=== PATIENT | female | born 2000 | race Caucasian/White ===

== ENCOUNTER 2022-01-26 08:49 | Outpatient (REF) | payer OTHER, SELFPAY ==
--- NOTE | ~2022-01-26 | MR_ITS ---
EXAMINATION: MR BRAIN WITHOUT AND WITH CONTRAST CLINICAL INFORMATION: History of neurofibromatosis type I. COMPARISON: Outside MRI dated 04/10/2018. TECHNIQUE: Multiplanar, multisequence imaging of the brain was performed before and after the intravenous administration of 5.5 mL of Gadavist. FINDINGS: There are scattered foci of T2 hyperintensity in the globus pallidus bilaterally, the thalami, the hippocampi, and in the dorsal brainstem which were present on prior imaging and are suspected to represent chronic areas of myelin vacuolization. Small foci of susceptibility artifact, mainly at the odell-white matter junction in both cerebral hemispheres and in the body of the right caudate nucleus are stable and may be due to either areas of mineralization or small chronic microhemorrhages from possible underlying cavernomas. The optic nerve sheath complexes and optic chiasm appear normal, though not targeted for evaluation. No diffusion abnormalities are identified to suggest an acute infarct. The ventricles are normal in size. No mass effect or midline shift is seen. No extra-axial fluid collections are seen. The brainstem and cerebellum are normal. There is no abnormal parenchymal or leptomeningeal enhancement. The craniovertebral junction, marrow signal, and midline structures are normal. The major intracranial flow voids at the level of the [place] of [place] are preserved. The dural venous sinus flow voids are maintained. The mastoid air cells and paranasal sinuses are well aerated. MR/MR head/brain wo con IMPRESSION: No acute process. No abnormal enhancement. 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 Additional stable scattered punctate foci of susceptibility artifact in the brain parenchyma on gradient imaging which are nonspecific but may reflect areas of mineralization or chronic microhemorrhages from potential small cavernous malformations.
== END 2022-01-26 08:50 | disposition home or self-care (01) ==
LOC: HO.MRI 08:49
PROVIDERS: Visit Provider Psychiatry & Neurology Neurology
DX: Q85.01 Neurofibromatosis, type 1 (principal)
CPT/HCPCS: 70551; A9585

== ENCOUNTER 2022-04-13 17:54 | Emergency (ER) | payer OTHER, SELFPAY ==
--- NOTE | ~2022-04-13 | US_ITS ---
EXAMINATION: US ABDOMEN LIMITED CLINICAL INFORMATION: Right upper quadrant pain. Question cholelithiasis.. COMPARISON: None TECHNIQUE: Real-time imaging of the right upper quadrant abdominal viscera. FINDINGS: PANCREAS: The pancreatic head and body are unremarkable. The tail is obscured by gas. LIVER: Normal. The liver is normal in size. The liver contour is normal. Parenchymal echogenicity is normal. No focal hepatic lesion. There is no intrahepatic biliary duct dilatation seen. GALLBLADDER: The gallbladder is mostly contracted without evidence of stones, sludge, polyps, wall thickening or pericholecystic fluid. COMMON BILE DUCT: Normal in caliber measuring 0.3 cm in diameter. RIGHT KIDNEY: There is an upper pole cyst measuring 1.6 cm with a peripheral calcification. No hydronephrosis. No renal calculi or solid parenchymal lesions. The kidney measures 9.4 cm in maximum dimension. FREE FLUID: None. US/US abdomen limited IMPRESSION: Contracted gallbladder with no stones seen. No inflammation. 1.6 cm right renal cyst. There is a peripheral calcification of the cyst.
[2022-04-13 17:58] VITALS: BP 138/63; PULSE 93; RESP 18; TEMP 36.7; O2SAT 98; BMI 24.4
[2022-04-13] MEDS: Ondansetron ODT 4 MG TAB.RAPDIS TRANSLINGU (18:02)
[2022-04-13 18:09] LABS: MANUAL DIFF FLAG NO
[2022-04-13 18:28] LABS: Basophils Absolute Auto 0.1 X10*3/uL (0.0-0.2); Basophils Percent Auto 0.6 % (0-2); Eosinophils Absolute Auto 0.1 X10*3/uL (0.0-0.4); Eosinophils Percent Auto 1.4 % (0-4); Hematocrit 41.5 % (37.0-47.0); Hemoglobin 14.8 g/dl (12.0-16.0); Imm Gran Abs Auto 0.03 X10*3/uL (0.00-0.03); Imm Gran Pct Auto 0.3 % (0.0-0.4); Lymphocytes Absolute Auto 1.5 X10*3/uL (1.2-4.9); Lymphocytes Percent Auto 16.3 % (20-40); Mean Corpuscular HGB Conc 35.7 g/dl (31.0-35.0); Mean Corpuscular Volume 81.2 fL (80.0-98.0); Mean Platelet Volume 10.7 fL (9.4-12.3); Monocytes Absolute Auto 0.7 X10*3/uL (0.1-1.2); Neutrophils Absolute Auto 6.9 x10*3/uL (2.0-8.3); Neutrophils Percent Auto 74.4 % (45-73); Platelet Count 264 X10*3/uL (160-400); Red Blood Count 5.11 X10*6/uL (4.20-5.50); Red Cell Distribution Width 12.6 % (11.0-16.0); White Blood Count 9.3 X10*3/uL (4.8-10.8)
[2022-04-13 18:32] LABS: Alanine Aminotransferase 9 U/L (0-31); Albumin Level 4.6 g/dL (3.5-5.0); Alkaline Phosphatase 59 U/L (39-117); Anion Gap 15 (12-20); Aspartate Amino Transferase 11 U/L (5-31); Bilirubin Total 0.5 mg/dL (0.0-1.0); Blood Urea Nitrogen 14 mg/dL (9-16); Calcium 9.5 mg/dL (8.4-10.2); Carbon Dioxide 25 mmol/L (22-29); Chloride 104 mmol/L (96-108); Creatinine Clr Calc Pharmacy 77.7; Estimated Glomerular Filt Rate > 60; Glucose Random 104 mg/dL (60-115); Potassium 4.1 mmol/L (3.3-5.1); Sodium 140 mmol/L (135-145); Total Protein 7.2 g/dL (6.5-8.0)
--- NOTE | 2022-04-13 21:08 | ED.ABDPAIN ---
HPI - Abdominal Pain General Chief Complaint: Abdominal Pain Stated Complaint: abd pain Time Seen by Provider: 04/13/22 21:08 Source: patient Mode of arrival: ambulatory Limitations: no limitations History of Present Illness HPI narrative: Patient with History of anxiety complaining of right upper quadrant pain for last 1 month was seen at [facility] [address] scan was negative complaining of continued alford of the pain associated with nausea vomited today once no fever no chills no diarrhea Related Data Previous Rx's Medication Instructions Recorded dicyclomine 20 mg tablet 20 mg PO QID PRN abdominal pain 04/14/22 #20 tabs Allergies Allergy/AdvReac Type Severity Reaction Status Date / Time No Known Allergies Allergy Verified 04/13/22 17:58 Review of Systems Review of Systems Yes all other systems are reviewed and are negative [facility] Social History Social History Advance Directives: No Advance Directives Information Provided: No Physical Exam ED Vital Signs: Vital Signs - 24 hr 04/13/22 17:58 04/13/22 21:59 04/13/22 23:52 Temperature 98.0 F 98.6 F Pulse Rate 93 76 78 Respiratory Rate 18 18 24 H Blood Pressure 138/63 106/55 L 117/63 Pulse Oximetry 98 99 99 Oxygen Delivery Method Room Air Room Air Room Air BMI result Body Mass Index 24.4 Appearance: Alert. Oriented X3. No acute distress. Eyes: No pallor or icterus ENT: Pharynx normal. Oral Mucosa moist Neck: Normal inspection. Neck supple. CVS: Normal heart rate and rhythm. Pulses normal. Respiratory: No respiratory distress. Equal air entry bilateral, no wheezing/rales/rhonchi Abdomen: Soft , deep tenderness right upper quadrant and epigastric area. Bowel sounds are present, no mass palpable, no CVA tenderness Skin: Skin warm and dry. Normal skin color. Normal skin turgor. Extremities: No lower extremity edema. No calf tenderness Neuro: Oriented X 3. No motor deficit. MDM - Abdominal Pain MDM Narrative Medical decision making narrative: Patient with upper abdominal pain previous CT scan negative was seen at [facility] last month lab workup was negative today also ultrasound normal CBC chemistry is also negative patient's symptoms likely from GERD/irritable bowel syndrome discharge patient home on Bentyl advised to continue Protonix and follow with PCP Lab Data Attestation: I reviewed the patient's lab results. Result diagrams: 04/13/22 18:05 04/13/22 18:05 Labs: Lab Results 04/13/22 04/13/22 04/13/22 Range/Units 18:05 18:05 23:33 WBC 9.3 (4.8-10.8) X10*3/uL RBC 5.11 (4.20-5.50) X10*6/uL Hgb 14.8 (12.0-16.0) g/dl Hct 41.5 (37.0-47.0) % MCV 81.2 (80.0-98.0) fL MCH 29.0 (27.0-33.0) pg MCHC 35.7 H (31.0-35.0) g/dl RDW 12.6 (11.0-16.0) % Plt Count 264 (160-400) X10*3/uL MPV 10.7 (9.4-12.3) fL Immature Gran % (Auto) 0.3 (0.0-0.4) % Neut % (Auto) 74.4 H (45-73) % Lymph % (Auto) 16.3 L (20-40) % Frontier % (Auto) 7.0 (2-11) % Eos % (Auto) 1.4 (0-4) % Baso % (Auto) 0.6 (0-2) % Lymph # (Auto) 1.5 (1.2-4.9) X10*3/uL Frontier # (Auto) 0.7 (0.1-1.2) X10*3/uL Eos # (Auto) 0.1 (0.0-0.4) X10*3/uL Baso # (Auto) 0.1 (0.0-0.2) X10*3/uL Abs Immat Gran (auto) 0.03 (0.00-0.03) X10*3/uL Absolute Neuts (auto) 6.9 (2.0-8.3) x10*3/uL Absolute Nucleated RBC 0.000 (0.0-0.012) X10*3/uL Nucleated RBC % (auto) 0.0 (0.0-0.2) /100WBC Sodium 140 (135-145) mmol/L Potassium 4.1 (3.3-5.1) mmol/L Chloride 104 (96-108) mmol/L Carbon Dioxide 25 (22-29) mmol/L Anion Gap 15 (12-20) BUN 14 (9-16) mg/dL Creatinine 0.82 (0.5-1.4) mg/dL Estim Creat Clear Calc 77.7 Estimated GFR > 60 Random Glucose 104 (60-115) mg/dL Calcium 9.5 (8.4-10.2) mg/dL Total Bilirubin 0.5 (0.0-1.0) mg/dL AST 11 (5-31) U/L ALT 9 (0-31) U/L Alkaline Phosphatase 59 (39-117) U/L Total Protein 7.2 (6.5-8.0) g/dL Albumin 4.6 (3.5-5.0) g/dL Urine Color Yellow Urine Appearance Clear Urine pH 7.0 (5.0-8.0) Ur Specific Kaleva 1.010 (1.005-1.025) Urine Protein Negative (Neg-Trace) mg/dL Urine Glucose (UA) Negative (Negative) mg/dL Urine Ketones Negative (Negative) mg/dL Urine Blood Negative (Negative) Urine Nitrite Negative (Negative) Ur Leukocyte Esterase Negative (Negative) Urine Test (NEGATIVE) 04/13/22 Range/Units 23:33 WBC (4.8-10.8) X10*3/uL RBC (4.20-5.50) X10*6/uL Hgb (12.0-16.0) g/dl Hct (37.0-47.0) % MCV (80.0-98.0) fL MCH (27.0-33.0) pg MCHC (31.0-35.0) g/dl RDW (11.0-16.0) % Plt Count (160-400) X10*3/uL MPV (9.4-12.3) fL Immature Gran % (Auto) (0.0-0.4) % Neut % (Auto) (45-73) % Lymph % (Auto) (20-40) % Frontier % (Auto) (2-11) % Eos % (Auto) (0-4) % Baso % (Auto) (0-2) % Lymph # (Auto) (1.2-4.9) X10*3/uL Frontier # (Auto) (0.1-1.2) X10*3/uL Eos # (Auto) (0.0-0.4) X10*3/uL Baso # (Auto) (0.0-0.2) X10*3/uL Abs Immat Gran (auto) (0.00-0.03) X10*3/uL Absolute Neuts (auto) (2.0-8.3) x10*3/uL Absolute Nucleated RBC (0.0-0.012) X10*3/uL Nucleated RBC % (auto) (0.0-0.2) /100WBC Sodium (135-145) mmol/L Potassium (3.3-5.1) mmol/L Chloride (96-108) mmol/L Carbon Dioxide (22-29) mmol/L Anion Gap (12-20) BUN (9-16) mg/dL Creatinine (0.5-1.4) mg/dL Estim Creat Clear Calc Estimated GFR Random Glucose (60-115) mg/dL Calcium (8.4-10.2) mg/dL Total Bilirubin (0.0-1.0) mg/dL AST (5-31) U/L ALT (0-31) U/L Alkaline Phosphatase (39-117) U/L Total Protein (6.5-8.0) g/dL Albumin (3.5-5.0) g/dL Urine Color Urine Appearance Urine pH (5.0-8.0) Ur Specific K[place] (1.005-1.025) Urine Protein (Neg-Trace) mg/dL Urine Glucose (UA) (Negative) mg/dL Urine Ketones (Negative) mg/dL Urine Blood (Negative) Urine Nitrite (Negative) Ur Leukocyte Esterase (Negative) Urine Test NEGATIVE (NEGATIVE) Discharge Plan Discharge Clinical Impression: Irritable bowel syndrome, GERD (gastroesophageal reflux disease) Patient Disposition: Home, Self-Care Instructions: Irritable Bowel Syndrome (ED), Gastroesophageal Reflux Disease (ED) Additional Instructions: Continue Protonix as prescribed by your physician Avoid fried food Take Bentyl 1 tablet every 6-8 hours for abdominal discomfort Drink plenty of fluids Follow up with PCP Prescriptions: New dicyclomine 20 mg tablet 20 mg PO QID PRN (Reason: abdominal pain) Qty: 20 0RF
[2022-04-13 21:59] VITALS: BP 106/55; PULSE 76; RESP 18; TEMP 37; O2SAT 99
[2022-04-13] MEDS: Ketorolac Tromethamine 30 MG/ML VIAL IVPUSH (22:01)
[2022-04-13] MEDS: 0.9 % Sodium Chloride 1,000 ML 999 ML IV (22:01)
[2022-04-13 23:52] VITALS: BP 117/63; PULSE 78; RESP 24; O2SAT 99
[2022-04-13 23:54] LABS: Appearance Urine Clear; Color Urine Yellow; Glucose Urine UA Negative (Negative); Leukocyte Esterase Urine Negative (Negative); Nitrite Urine Negative (Negative); Urine Blood Negative (Negative); Urine Ketones Negative (Negative); Urine Protein Negative (Neg-Trace)
[2022-04-13 23:55] LABS: UPreg QC Valid YES; Urine Pregnancy NEGATIVE (NEGATIVE)
[2022-04-14] MEDS: Dicyclomine HCl 10 MG CAPSULE 20 MG PO (00:10)
[2022-04-14 00:17] LABS: Lipase 31 U/L (8-78)
== END 2022-04-14 00:15 | disposition home or self-care (01) ==
PROVIDERS: Emergency Provider Internal Medicine
DX: K58.9 Irritable bowel syndrome, unspecified (principal); K21.9 Gastro-esophageal reflux disease without esophagitis; R10.11 Right upper quadrant pain; R11.2 Nausea with vomiting, unspecified
CPT/HCPCS: 36415; 76705; 80053; 81003; 81025; 83690; 85025; 96374; 99284; J1885

== ENCOUNTER 2022-06-17 01:45 | Emergency (ER) | payer OTHER, SELFPAY ==
--- NOTE | 2022-06-17 | ECG_ITS ---
Test Reason : CHEST PAIN Blood Pressure : / mmHG Vent. Rate : 075 BPM Atrial Rate : 075 BPM P-R Int : 128 ms QRS Dur : 122 ms QT Int : 410 ms P-R-T Axes : -08 -20 048 degrees QTc Int : 457 ms Normal sinus rhythm Minimal voltage criteria for LVH, may be normal variant ( R in aVL ) Intra-ventricular conduction delay Left axis deviation Abnormal ECG No previous ECGs available Referred By: Generic ED Physician Electronically Signed By:BEATRIZ TERRY MD
--- NOTE | ~2022-06-17 | XR_ITS ---
EXAMINATION: XR CHEST CLINICAL INFORMATION: Chest pain. COMPARISON: None TECHNIQUE: Frontal view of the chest was obtained. FINDINGS: The lungs are clear. The heart and mediastinal structures are unremarkable. Multilevel sternotomy wires are intact. XR/XR chest 1V IMPRESSION: No acute cardiopulmonary process.
--- NOTE | ~2022-06-17 | CT_ITS ---
EXAMINATION: CT ANGIOGRAM CHEST CLINICAL INFORMATION: Chest pain radiating to the back COMPARISON: None TECHNIQUE: Multiple axial images were obtained through the chest after the administration of 70 mL of Omnipaque 350 intravenous contrast. Sagittal, coronal, and oblique MIP images through the chest were obtained under concurrent supervision by a radiologist. This CT examination was performed using dose optimization techniques as appropriate, variously including the following: *Automated exposure control *Adjustment of mA and/or kV according to patient size (this includes techniques or standardized protocols for targeted exams where dose is matched to indication/reason for exam; i.e. extremities or head) *Use of iterative reconstruction technique DLP: 185 mGy-cm FINDINGS: The study is limited by significant patient motion artifact. There is artifact and misregistration of the tapia of the aortic arch and main pulmonary artery which limits evaluation for aortic dissection. No definite aneurysm or dissection seen. No pulmonary embolus seen. Mild upper lobe predominant emphysema. No focal consolidation or mass. No pleural effusion or pneumothorax. Normal heart size. No pericardial effusion. No lymphadenopathy. Sternal wires and healed sternotomy. No rib fractures. 4 mm right upper pole density could represent a calculus. No hydronephrosis. No adrenal mass. No reflux of contrast into the hepatic veins. CT/CT angio chest aorta IMPRESSION: Limited study due to extensive motion artifact. This limits evaluation for subtle aortic dissection particularly at the level of the aortic arch. If there is continued high clinical concern for dissection, the study should be repeated with cardiac gating.
[2022-06-17 01:49] VITALS: BP 128/64; PULSE 78; RESP 16; TEMP 36.5; O2SAT 100; BMI 53.8
[2022-06-17 02:58] LABS: MANUAL DIFF FLAG NO
[2022-06-17 02:59] LABS: Basophils Absolute Auto 0.1 X10*3/uL (0.0-0.2); Basophils Percent Auto 0.6 % (0-2); Eosinophils Absolute Auto 0.2 X10*3/uL (0.0-0.4); Eosinophils Percent Auto 2.1 % (0-4); Hemoglobin 14.4 g/dl (12.0-16.0); Imm Gran Abs Auto 0.03 X10*3/uL (0.00-0.03); Imm Gran Pct Auto 0.3 % (0.0-0.4); Lymphocytes Percent Auto 19.9 % (20-40); Mean Corpuscular Hemoglobin 29.3 pg (27.0-33.0); Mean Corpuscular Volume 81.3 fL (80.0-98.0); Mean Platelet Volume 10.3 fL (9.4-12.3); Monocytes Absolute Auto 0.7 X10*3/uL (0.1-1.2); Monocytes Percent Auto 6.8 % (2-11); Neutrophils Absolute Auto 7.1 x10*3/uL (2.0-8.3); Neutrophils Percent Auto 70.3 % (45-73); Platelet Count 257 X10*3/uL (160-400); Red Blood Count 4.92 X10*6/uL (4.20-5.50); White Blood Count 10.1 X10*3/uL (4.8-10.8)
[2022-06-17 03:19] LABS: Alanine Aminotransferase 9 U/L (0-31); Albumin Level 4.6 g/dL (3.5-5.0); Alkaline Phosphatase 55 U/L (39-117); Anion Gap 15 (12-20); Aspartate Amino Transferase 12 U/L (5-31); Bilirubin Total 0.4 mg/dL (0.0-1.0); Blood Urea Nitrogen 18 mg/dL (9-16); Calcium 9.8 mg/dL (8.4-10.2); Carbon Dioxide 25 mmol/L (22-29); Chloride 104 mmol/L (96-108); Creatinine Clr Calc Pharmacy 130.7; Estimated Glomerular Filt Rate > 60; Glucose Random 85 mg/dL (60-115); Sodium 140 mmol/L (135-145); Total Protein 7.1 g/dL (6.5-8.0)
[2022-06-17 03:29] LABS: Troponin-I High Sensitivity < 3.5 ng/L (<3.5-17.0)
--- OUTSIDE RECORDS SUMMARY | 2022-06-17 07:57 | XMS_ITS | Continuity of Care Document ---
:2000 Author Organization [facility] Address [address] [place] [phone]- Care Team Providers Name Role Phone Olvin Malathi BILLS Primary Care Physician [place] [facility] [place] 09/08/21 - 10/08/21 [facility] [address] [place] [phone]- Allergies, Adverse Reactions, Alerts No Known Allergies Medications amoxicillin 500 mg oral tablet See Instructions, Take 4 tablets (2000mg) One hour prior to dental appointment, # 4 tablet, 2 Refills, Maintenance, 09/24/18 11:55:03 EST Start Date: 09/24/18 Status: Orderedchlorhexidine topical 0.12% liquid 15 mL = 0.018 Gm, Swish and Spit, 3 times a day after meals and bedtime, # 420 mL, 1 Refills, Maintenance, 11/05/20 15:07:00 EST, Oral Rinse, [id number], Partial fill upon patient request if the prescription is for a schedule II opioid drug.,... Start Date: 11/05/20 Stop Date: 11/19/20 Status: OrderedFlonase 1 sprays, Daily, 0 Refills, Maintenance, 01/18/18 9:01:34 EDT Start Date: 01/18/18 Status: OrderedLoratadine By Mouth, Daily, Refills 0, Maintenance, 11/30/17 9:23:26 EDT Start Date: 11/30/17 Status: Ordered Problem List Condition Effective Dates Status Health Status Informant Hyperactive Active behavior(Confirmed)(Stable) Neurofibromatosis type Active 1(Confirmed)(Stable) Short stature(Confirmed)(Stable) Active Social History Social History Type Response Smoking Status Never (less than 100 in life time) entered on: 10/01/19 Sex Female
--- OUTSIDE RECORDS SUMMARY | 2022-06-17 07:57 | XMS_ITS | Continuity of Care Document ---
:2000 Author Organization [facility] Address [address] [place] [address]- Care Team Providers Name Role Phone Milly JETT, Paula Lo Primary Care Physician Encounter [facility] [place] Date(s): 05/12/20 - 06/11/20 [facility] [address] [place] [id number]- [facility] Attending Physician: Admtr, Joe Allergies, Adverse Reactions, Alerts Substance Reaction Severity Status NKA Active Medications amoxicillin 500 mg oral tablet See Instructions, Take 4 tablets (2000mg) One hour prior to dental appointment, # 4 tablet, 2 Refills, Maintenance, 09/24/18 11:55:03 EST Start Date: 09/24/18 Status: OrderedFlonase 1 sprays, Daily, 0 Refills, [...]
--- OUTSIDE RECORDS SUMMARY | 2022-06-17 07:57 | XMS_ITS | Continuity of Care Document ---
:2000 Author Organization [facility] Address [address] [place] [phone]- Care Team Providers Name Role Phone Milly JETT, Paula Lo Primary Care Physician Encounter [facility] [place] Date(s): 10/16/19 - 10/16/[address] [phone]- [facility] Attending Physician: Ubaldo Donahue DO Allergies, Adverse Reactions, Alerts Substance Reaction Severity [...]
--- OUTSIDE RECORDS SUMMARY | 2022-06-17 07:57 | XMS_ITS | Continuity of Care Document ---
:2000 Author Organization [facility] Address [address] [place] [phone]- Care Team Providers Name Role Phone Olvin Malathi BILLS Primary Care Physician [place] [facility] [place]13[place] 10[place]13[place]21 [facility] [address] [place] [phone]- Allergies, Adverse Reactions, Alerts No Known Allergies [...] Refills, Maintenance, 11/05/20 15:07:00 EST, Oral Rinse, [id number], Partial fill upon patient request if [...]
--- OUTSIDE RECORDS SUMMARY | 2022-06-17 07:57 | XMS_ITS | Continuity of Care Document ---
:2000 Author Organization [facility] [address] [place] [phone]- Care Team Providers Name Role Phone Not on Staff, PCP Primary Care Physician Unavailable Encounter [facility] Date(s): 12/20/21 - 01/19/[address] [place] [phone]- Attending Physician: Joe Veliz Admitting Physician: Joe Veliz Referring Physician: AdmtrJoe Allergies, Adverse Reactions, Alerts No Known Allergies [...] Refills, Maintenance, 11/05/20 15:07:00 EST, Oral Rinse, [id number], Partial fill upon patient request if [...]
--- OUTSIDE RECORDS SUMMARY | 2022-06-17 07:57 | XMS_ITS | Continuity of Care Document ---
:2000 Author Organization [facility] Address [address] [place] [phone]- Care Team Providers Name Role Phone Malathi Figueroa Primary Care Physician Encounter [facility] [place] Date(s): 09/09/21 - 09/09/[address] [address]- Encounter Diagnosis Precordial chest pain (Final) - 09/09/21 Discharge Disposition: A-D/C Home Attending Physician: Danica Manrique DO Admitting Physician: Danica Manrique DO Referring Physician: Not on Staff, Referring MD Allergies, Adverse Reactions, Alerts No Known Allergies [...] Refills, Maintenance, 11/05/20 15:07:00 EST, Oral Rinse, [facility][id number], Partial fill upon patient request if [...] Neurofibromatosis type Active 1(Confirmed)(Stable) Short stature(Confirmed)(Stable) Active Results Radiology Reports Exam Date Time Procedure Performing Provider Status 09/09/21 2:42 PM Chest 2 Views Frontal and Lat Mini Valdes; Au th (Verified) Notes:(Chest 2 Views Frontal and Lat) Reason For Exam: Chest Pain;Other:RESULT: Chest 2 Views Frontal and Lat Chest 2 Views Frontal and Lat HX OF PRESENT ILLNESS: chest pain radiating to left shoulder; Reason: Chest Pain COMPARISON: None. FINDINGS: LINES AND TUBES: None. LUNGS AND PLEURA: Clear lungs. Normal pulmonary vascularity. No pleural effusion. No pneumothorax. HEART, MEDIASTINUM AND JO ANN: Heart is normal in size. Normal upper mediastinal and hilar contour. BONES AND SOFT TISSUES: No acute abnormality. Sternotomy wires are intact. IMPRESSION: No evidence of acute abnormality. I have personally reviewed the images and I agree with this report. WSN: [id number] Ordering Physician: Cachorro Welch MD Dictated By: oRbby Ortiz DO Dictated Date/Time: 09/09/21 2:56 pm Reviewed By: Silvano Sweeney MD Signed By: Silvano Sweeney MD Signed Date/Time: 09/09/21 3:01 pm Transcribed By: ACE Transcribed Date/Time: 09/09/21 2:43 pm Vital Signs Most recent to oldest 1 2 3 [Reference Range]: Oxygen Saturation [94-100 %] 100 % 100 % 100 % (09/09/21 2:33 PM) (09/09/21 1:34 PM) (09/09/21 1:1 2 PM) Pulse Rate [55-90 bpm] 88 bpm 88 bpm 109 bpm (09/09/21 2:33 PM) (09/09/21 1:34 PM) *H* (09/09/21 1:12 PM ) Blood Pressure [90-138/55-84 mm 127/79 mm Hg 108/68 mm Hg Hg] (09/09/21 2:33 PM) (09/09/21 1:34 PM) Respiratory Rate [16-30 br/min] 17 br/min 20 br/min (09/09/21 2:33 PM) (09/09/21 1:34 PM) Temperature [96.8-100.4 DegF] 99.2 DegF 98.2 DegF (09/09/21 2:33 PM) (09/09/21 1:34 PM) Mode of Delivery (Oxygen) Room air Room air Room a ir (09/09/21 2:33 PM) (09/09/21 1:34 PM) (09/09/21 1:1 2 PM) Blood pressure sites Arm, left Arm, right (09/09/21 2:33 PM) (09/09/21 1:34 PM) Temperature Route Oral Oral (09/09/21 2:33 PM) (09/09/21 1:34 PM) Social History Social History Type Response Smoking Status Never (less than 100 in life time) entered on: 10/01/19 Sex Female
--- OUTSIDE RECORDS SUMMARY | 2022-06-17 07:57 | XMS_ITS | Continuity of Care Document ---
:2000 Author Organization [facility] Address [address] [place] [address]- Care Team Providers Name Role Phone Milly JETT, Paula Lo Primary Care Physician [place] [facility] [place] - 06/11/20 [facility] [address] [place] [address]- [place] Attending Physician: Joe Veliz Admitting Physician: Joe Veliz Referring Physician: Joe Veliz Allergies, Adverse Reactions, Alerts Substance Reaction Severity [...]
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
--- OUTSIDE RECORDS SUMMARY | 2022-06-17 07:57 | XMS_ITS | Continuity of Care Document ---
:1999 Author Organization [facility] Address [address] [place] [phone]- Care Team Providers Name Role Phone Not on Staff, PCP Primary Care Physician Unavailable [place] [facility] [place] Date(s[place] 03/16/22 - 03/17/[address] [address] Discharge Disposition: A-D/C Home Attending Physician: Joana Ramey MD Admitting Physician: Delfino Kelley MD Referring Physician: Not on Staff, Referring MD [...] 11/30/17 9:23:26 EDT Start Date: 11/30/17 Status: OrderedMorPHINE Inj 2 mg, Injection, IV Push Slowly, Every 4 hours, PRN for Pain , Severe, Routine, 03/17/22 8:42:00 EDT Start Date: 03/17/22 Stop Date: 03/18/22 Status: DiscontinuedoxyCODONE 5 mg oral tablet 5 mg, 1, tablet, By Mouth, Every 6 hours, PRN, for 3 days, # 12 tablet, Refills 0, Tot. Refills 0, Acute 03/20/22 15:35:00 EDT, Pain , Severe, 03/17/22 15:35:00 EDT, Print Requisition, Partial fill upon patient request if the prescription is for a luis felipe... Start Date: 03/17/22 Stop Date: 03/20/22 Status: OrderedProtonix 40 mg oral delayed release tablet 1 [...] Date: 03/17/22 Status: Ordered Problem List Condition Effective Dates Status Health Status Informant Hyperactive Active behavior(Confirmed)(Stable) Neurofibromatosis type Active 1(Confirmed)(Stable) Short stature(Confirmed)(Stable) Active Vital Signs Most recent to oldest 1 2 3 [Reference Range]: Height 148 cm 148 cm 148 cm (03/17/22 11:45 AM) (03/17/22 10:59 AM) (03/17/22 9 :24 AM) Weight 52 kg 50 kg (03/17/22 10:59 AM) (03/16/22 10:28 PM) Oxygen Saturation [94-100 100 % 100 % 99 % %] (03/17/22 11:45 AM) (03/17/22 9:24 AM) (03/17/22 8: 04 AM) Pulse Rate [55-90 bpm] 62 bpm 59 bpm 97 bpm (03/17/22 11:45 AM) (03/17/22 9:24 AM) *H* (03/17/22 8:04 AM ) Body Mass Index 23.74 22.83 [18.5-24.99] (03/17/22 10:59 AM) (03/16/22 10:28 PM) Blood Pressure 127/72 mm Hg 112/67 mm Hg 116/70 mm Hg [90-138/55-84 mm Hg] (03/17/22 11:45 AM) (03/17/22 9:24 AM) ( 8:04 AM) Respiratory Rate [16-30 17 br/min 17 br/min 18 br/mi n br/min] (03/17/22 11:45 AM) (03/17/22 9:24 AM) (03/17/22 8: 45 AM) Temperature [96.8-100.4 97.6 DegF 97.5 DegF 97.5 Deg F DegF] (03/17/22 11:45 AM) (03/17/22 9:24 AM) (03/17/22 8: 04 AM) Mode of Delivery (Oxygen) Room air Room air Room a ir (03/17/22 11:45 AM) (03/17/22 9:24 AM) (03/17/22 8: 04 AM) Blood pressure sites Arm, right Arm, left Arm, left (03/17/22 11:45 AM) (03/17/22 9:24 AM) (03/17/22 8: 04 AM) Temperature Route Oral Oral Oral (03/17/22 11:45 AM) (03/17/22 9:24 AM) (03/17/22 8: 04 AM) Dry Weight 52 kg 50 kg (03/17/22 10:59 AM) (03/16/22 10:28 PM) Weight Obtained Via Patient/family stated (03/16/22 10:28 PM) Dry Weight Obtained Via Patient/family stated (03/16/22 10:28 PM) Social History Social History Type Response Smoking Status Never (less than 100 in life time) entered on: 10/01/19 Sex Female
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
--- OUTSIDE RECORDS SUMMARY | 2022-06-17 07:57 | XMS_ITS | Continuity of Care Document ---
:1999 Author Organization [facility] Address [address] [place] [phone]- Care Team Providers Name Role Phone Milly JETT, Paula Lo Primary Care Physician [place] [facility] [place]05[place]20 [place] 11/05/[address] [address] Discharge Disposition: A-D/C Home Attending Physician: Bronson Kinsey DDS, MD Admitting Physician: Bronson Kinsey DDS, MD Referring Physician: Bronson Kinsey DDS, MD Allergies, Adverse Reactions, Alerts Substance Reaction Severity Status NKA Active Medications acetaminophen-oxyCODONE 325 mg-5 mg oral tablet 1, tablet, By Mouth, Every 6 hours, PRN, for 3 days, # 12 tablet, Refills 0, Tot. Refills 0, Acute, Pain , Moderate, 11/08/20 15:08:00 EDT, 11/05/20 15:08:00 EST, Print Requisition, Tablet, Partial fill upon patient request if the prescription is for... Start Date: 11/05/20 Stop Date: 11/08/20 Status: Orderedamoxicillin 500 mg oral tablet See Instructions, Take [...] Start Date: 11/05/20 Stop Date: 11/19/20 Status: Orderedclindamycin 300 mg oral capsule 1 capsule = 300 mg, By Mouth, Every 8 hours, for 3 days, # 9 capsule, 0 Refills, Acute 11/08/20 15:07:00 EDT, 11/05/20 15:07:00 EST, Capsule, [facility] #[id number], Partial fill upon patient request if the prescription is for a schedule II opioid drug.,... Start Date: 11/05/20 Stop Date: 11/08/20 Status: OrderedFENTanyl Inj 50 mcg, Injection, IV Push Slowly, Every 5 minutes for 4 doses/times, in PACU ONLY, Hold for: RR less than 8 or over-sedation, PRN for Pain , Severe, Repeat until Pain Score is less than or equal to 2,Routine, 11/05/20 14:17:00 EST, Stop date Limited... Start Date: 11/05/20 Status: OrderedFlonase 1 sprays, Daily, 0 Refills, Maintenance, 01/18/18 9:01:34 EDT Start Date: 01/18/18 Status: Orderedibuprofen 600 mg oral tablet 600 mg, By Mouth, Every 6 hours, PRN, for 5 days, # 20 tablet, Refills 0, Tot. Refills 0, Acute 11/10/20 15:07:00 EDT, Pain , Mild, 11/05/20 15:07:00 EST, Route to Pharmacy Electronically, [facility]/pharm[facility]#[id number], Partial fill upon patient request if the p... Start Date: 11/05/20 Stop Date: 11/10/20 Status: OrderedLoratadine By Mouth, Daily, Refills 0, Maintenance, 11/30/17 9:23:26 EDT Start Date: 11/30/17 Status: OrderedOxyCODONE IR Tablet 5 mg, Tablet, By Mouth, Every 4 hours, in PACU ONLY, if patient can tolerate PO, PRN for Pain , Mild, Routine, 11/05/20 14:17:00 EST Start Date: 11/05/20 Stop Date: 11/12/20 Status: Ordered Problem List Condition Effective Dates Status Health Status Informant Hyperactive Active behavior(Confirmed)(Stable) Neurofibromatosis type Active 1(Confirmed)(Stable) Short stature(Confirmed)(Stable) Active Vital Signs Most recent to oldest 1 2 3 [Reference Range]: Height 148 cm 148 cm (11/05/20 12:10 PM) (11/04/20 12:55 PM) Weight 53.8 kg 53.8 kg (11/05/20 12:10 PM) (11/04/20 12:55 PM) Oxygen Saturation 100 % 100 % 100 % [94-100 %] (11/05/20 4:15 PM) (11/05/20 4:00 PM) (11/05/20 3:4 5 PM) Pulse Rate [55-90 bpm] 88 bpm (11/05/20 12:10 PM) Body Mass Index 24.56 24.56 [18.5-24.99] (11/05/20 12:10 PM) (11/04/20 12:55 PM) Blood Pressure 114/66 mm Hg 115/66 mm Hg 134/74 mm Hg [90-138/55-84 mm Hg] (11/05/20 4:15 PM) (11/05/20 4:00 PM) ( 1 3:45 PM) Respiratory Rate [16-30 15 br/min 17 br/min 13 br/mi n br/min] *L* (11/05/20 4:14 PM) *L* (11/05/20 4:15 PM) (11/05/20 4:12 PM) Temperature [96.8-100.4 98.0 DegF 97.4 DegF 98.8 Deg F DegF] (11/05/20 4:30 PM) (11/05/20 3:00 PM) (11/05/20 12: 10 PM) Mode of Delivery Room air Room air Room air (Oxygen) (11/05/20 4:15 PM) (11/05/20 4:00 PM) (11/05/20 3:4 5 PM) Blood pressure sites Arm, left Arm, left Arm, left (11/05/20 4:15 PM) (11/05/20 4:00 PM) (11/05/20 3:4 5 PM) Temperature Route Temporal Temporal Temporal (11/05/20 4:30 PM) (3/12/21 3:00 PM) (11/05/20 12: 10 PM) Dry Weight 54 kg 53.8 kg (11/05/20 12:10 PM) (11/04/20 12:55 PM) Weight Obtained Via Patient/family stated (11/04/20 12:55 PM) Dry Weight Obtained Via Standing scale Patient/family stated (11/05/20 12:10 PM) (11/04/20 12:55 PM) Social History Social History Type Response Smoking Status Never (less than 100 in life time) entered on: 10/01/19 Sex Female
--- OUTSIDE RECORDS SUMMARY | 2022-06-17 07:57 | XMS_ITS | Continuity of Care Document ---
:1999 Author Organization [facility] Address [address] [place] [phone]- Care Team Providers Name Role Phone Olvin Malathi BILLS Primary Care Physician [place] [facility] [place]s): 01/04/21 - 02/03/21 [facility] [address] [place] [id number] Attending Physician: Joe Veliz Admitting Physician: AdmtrJoe Referring Physician: AdmtrJoe Allergies, Adverse Reactions, Alerts Substance Reaction Severity [...] Refills, Maintenance, 11/05/20 15:07:00 EST, Oral Rinse, [facility]/pharm[facility] #[id number], Partial fill upon patient request [...]
--- OUTSIDE RECORDS SUMMARY | 2022-06-17 07:57 | XMS_ITS | Continuity of Care Document ---
:1999 Author Organization [facility] Address [address] [place] [phone]- Care Team Providers Name Role Phone Not on Staff, PCP Primary Care Physician Unavailable Encounter [facility] Date(s): 05/15/22 - 06/14/22 [facility] [address] [place] [phone]- Attending Physician: Joe Veliz Admitting Physician: Joe [...] 11/30/17 9:23:26 EDT Start Date: 11/30/17 Status: OrderedProtonix 40 mg oral delayed release [...] Active 1 Short stature Confirmed Stable Active Social History Social History Type Response Smoking Status Never (less than 100 in life time) entered on: 10/01/19 Sex Female Patient Care team information PersonnelName: Not on Staff, PCP
--- OUTSIDE RECORDS SUMMARY | 2022-06-17 07:58 | XMS_ITS | Continuity of Care Document ---
:1999 Author Organization [facility] [address] [place] [phone]- Care Team Providers Name Role Phone Not on Staff, PCP Primary Care Physician Unavailable [place] [facility] [place] - 12/27/[address] [place] [id number] Attending Physician: Nichole Wallace MD Referring Physician: Not on Staff, Referring [...] Active Vital Signs Most recent to oldest [Reference Range]: 1 Height 148 cm (12/20/21 11:42 AM) Weight 54 kg (12/20/21 11:42 AM) Body Mass Index [18.5-24.99] 24.65 (12/20/21 11:42 AM) Dry Weight 54 kg (12/20/21 11:42 AM) Social History Social History Type Response Smoking Status Never (less than 100 in life time) entered on: 10/01/19 Sex Female
--- OUTSIDE RECORDS SUMMARY | 2022-06-17 07:58 | XMS_ITS | Summary of Care ---
:1999 Author Organization [facility] Address [address] [place] [address]- Care Team Providers Name Role Phone NATHAN JETT, MJ Lo Primary Care Physician Encounter [facility] [id number] Date(s): 03/02/22 - 03/02/[address] [address]- Attending Physician: BRIAN LEONARD MD, SHEREEN Benjamin Referring Physician: [facility] Allergies, Adverse Reactions, Alerts No Known Medication Allergies Problem List Condition Effective Dates Status Health Status Informant Congenital subvalvular aortic Active stenosis( ) Imaging of genitourinary system Active abnormal(Confirmed) Middle aortic syndrome(Confirmed) Active Neurofibromatosis type 1( ) Active Stenosis of renal artery.(Confirmed) Active
--- OUTSIDE RECORDS SUMMARY | 2022-06-17 07:58 | XMS_ITS | Continuity of Care Document ---
:1999 Author Organization [facility] Address [address] [place] [address]- Care Team Providers Name Role Phone Milyl JETT, Paula Lo Primary Care Physician [place] [facility] [place] 05[place]19[place]20 [facility] [address] [place] [phone]- [facility] Attending Physician: Mara Saul MD Allergies, Adverse Reactions, Alerts Substance Reaction [...] recent to oldest [Reference Range]: 1 Height 148.7 cm (05/12/20 11:37 AM) Weight 53.1 kg (05/12/20 11:37 AM) Body Mass Index [18.5-24.99] 24.01 (05/12/20 11:37 AM) Blood Pressure [90-138/55-84 mm Hg] 119/61 mm Hg (05/12/20 11:37 AM) Blood pressure sites Arm, right (05/12/20 11:37 AM) Dry Weight 53.1 kg (05/12/20 11:37 AM) Social History Social History Type Response Smoking Status Never (less than 100 in life time) entered on: 10/01/19 Sex
--- OUTSIDE RECORDS SUMMARY | 2022-06-17 07:58 | XMS_ITS | Summary of Care ---
:2000 Author Organization [facility] Address [address] [place] [address]- Care Team Providers Name Role Phone MJ EVANS MD Primary Care Physician Encounter [facility] [id number] Date(s): 09/16/21 - 09/16/[address] [place] [address]- Discharge Disposition: Discharge Attending Physician: ALLEN AGARWAL MD Referring Physician: MJ EVANS MD Allergies, Adverse Reactions, Alerts No Known Medication Allergies Problem List Condition Effective Dates Status Health Status Informant Congenital subvalvular aortic Active stenosis( ) Imaging of genitourinary system Active abnormal(Confirmed) Middle aortic syndrome(Confirmed) Active Neurofibromatosis type 1( ) Active Stenosis of renal artery.(Confirmed) Active
--- OUTSIDE RECORDS SUMMARY | 2022-06-17 07:58 | XMS_ITS ---
:2000 Author Care Team Providers Name Role Phone [facility] ([facility] ONLY) Primary Care Pr ovider [phone] Allergies Code Code System Name Reaction Severity Status Onset NKDA ? Medications Name Status Start Date Stop Date ? ? amoxicillin 400 mg/5 mL oral suspension Completed ? 08/12/2019 amoxicillin 500 mg capsule Completed ? 08/12 azithromycin 250 mg tablet Completed ? 08/12 D3-2000 50 mcg (2,000 unit) capsule Active ? Not available Ear Wax Removal Drops 6.5 % Completed ? 07/27 fluticasone propionate 50 mcg/actuation nasal Completed ? 08/12/2019 spray,suspension loratadine 10 mg tablet Active ? Not avai lable sulfamethoxazole 800 mg-trimethoprim 160 mg tablet Completed ? 08/12/2019 Problems Name Status Onset Date Source ? Paronychia Active 08/12/2019 ? Procedures Date Name Performed by ? ? Heart Surgery Information not avai lable ? Heart Surgery Information not avai lable Results Lab Results None recorded. Past Encounters None recorded. Social History Tobacco Smoking Status Never Smoker Vaccine List None recorded. Plan of Care Reminders Provider Appointments None recorded. ? ? Lab None recorded. ? ? Referral None recorded. ? ? Procedures None recorded. ? ? Surgeries None recorded. ? ? Imaging None recorded. ? ? Vitals 08/12/2019 09:00AM FOLLOW UP 15 Height Weight BMI 4 ft 10.5 in 118 lbs 24.2 kg/m2 07/17/2019 Height Weight BMI 4 ft 10.5 in 118 lbs 24.2 kg/m2
--- OUTSIDE RECORDS SUMMARY | 2022-06-17 07:58 | XMS_ITS | Continuity of Care Document ---
:2000 Author Organization [facility] Address [address] [place] [address]- Care Team Providers Name Role Phone Milly JETT, Paula Lo Primary Care Physician Encounter [facility] Date(s): 04/27/20 - 05/27/20 [facility] [address] [place] [id number] Allergies, Adverse Reactions, Alerts Substance Reaction Severity [...]
--- NOTE | 2022-06-17 08:05 | ED.CHESTPAIN ---
HPI - Chest Pain General Chief Complaint: Chest Pain Stated Complaint: Chest Pain Time Seen by Provider: 06/17/22 07:59 Source: patient Mode of arrival: ambulatory Limitations: no limitations History of Present Illness HPI narrative: 21 yo female with history of open heart surgeries x2 (age 5 & 13 in [place]) who is presenting to the ER for evaluation of chest pain that started suddenly at 11:50pm. She states the pain came on when she was sitting on the cough. It is both sharp and heavy, it is located in her right chest and radiates to her back and right side of her neck. It is constant and a 5/10. She is not SOB, nauseated, having fevers or coughing. She reports a history of surgery as a child to remove muscle around my aorta. She also has had another surgery that she is unaware of. She is followed by Cardiology and Nephrology at [facility] but has not seen them in a while due to COVID. complaint: chest pain Onset (ago): hour(s) Timing of current episode: constant Prior episodes: Yes Onset: during rest Pain location: right chest Pain radiation: back and neck Severity: moderate Pain scale (0-10): 6 Quality: aching and heaviness Relieving factors: nothing Exacerbating factors: nothing Treatment prior to arrival: none Risk Factors Coronary artery disease risk factors: none Related Data Previous Rx's Medication Instructions Recorded dicyclomine 20 mg tablet 20 mg PO QID PRN abdominal pain 04/14/22 #20 tabs Allergies Allergy/AdvReac Type Severity Reaction Status Date / Time No Known Allergies Allergy Verified 04/13/22 17:58 Review of Systems Review of Systems: Constitutional: No Fever, No Chills ENT/Mouth: No sore throat, No Rhinorrhea, No Swallowing Difficulty Cardiovascular: No Chest Pain, + SOB, No Orthopnea, No Edema, +Palpitations Respiratory: No Cough, No Sputum, No Wheezing, No dyspnea Gastrointestinal: No Nausea, No Vomiting, No Diarrhea, No abdominal Pain Genitourinary: No Dysuria, No Urinary Frequency, No Hematuria Musculoskeletal: No joint pain, No Myalgias Skin: No Skin Lesions, No rash Neuro: No Weakness, No Numbness, No Dizziness, No Headache Psych: No Anxiety/Panic, No Depression Heme/Lymph: No Bruising, No Lymphadenopathy PMFSH Social History Social History Advance Directives: No Physical Exam Vital Signs: Vital Signs: Last Vital Signs Temp 98.2 F 06/17/22 09:28 Pulse 74 06/17/22 09:28 Resp 13 06/17/22 09:28 BP 115/56 L 06/17/22 09:28 Pulse Ox 100 06/17/22 09:28 O2 Del Method 06/17/22 09:28 BMI result Body Mass Index 53.8 Appearance: Alert. Oriented X3. No acute distress. Eyes: Pupils equal, round and reactive to light. ENT: Pharynx normal. Neck: Normal inspection. Neck supple. CVS: Well healed longitudinal surgical scar on the chest. Normal heart rate and rhythm. +systolic murmur. Pulses normal. Respiratory: No respiratory distress. Breath sounds normal. Abdomen: Soft and nontender. +BS x4 Skin: Skin warm and dry. Normal skin color. Normal skin turgor. No rashes. Extremities: No lower extremity edema. Warm and well perfused. Neuro: Oriented X 3. No motor deficit. No sensory deficit. Course Course Course Narrative: 21 yo female with cardiac history s/p 2 surgeries as a child who presents to the ER with right sided chest pain that radiates to her neck and back as well as palpitations that started last night. Patient spent several hours in the waiting room. Hemodynamics normal. Lab workup started and initial trop negative. EKG without STEMI. Concern for possible dissection given her history and description of the pain, although the pain is lessening now. BP 120s with HR 70s and she appears comfortable. Reevaluation(s) Reevaluation #1: Troponin negative x2, DDIMER <150. CT angio does not show any blot clots or dissection, however given motion artifact a subtle dissection of the aortic arch cannot be fully excluded. Patient has been here for 8 hours with improvement in her pain. She is currently sleeping. At this time doubt aortic dissection. Results d/w mom - plan is to d/c home and follow up with her providers early next week. She was given strict return precautions. Comfortable with d/c and close outpatient follow up. Case d/w Dr. Jon. [facility] - Chest Pain Medical Records Data Attestation: I reviewed the patient's medical records. Lab Data Attestation: I reviewed the patient's lab results. Result diagrams: 06/17/22 02:48 06/17/22 02:48 Labs: Lab Results 06/17/22 06/17/22 06/17/22 Range/Units 02:48 02:48 02:48 WBC 10.1 (4.8-10.8) X10*3/uL RBC 4.92 (4.20-5.50) X10*6/uL Hgb 14.4 (12.0-16.0) g/dl Hct 40.0 (37.0-47.0) % MCV 81.3 (80.0-98.0) fL MCH 29.3 (27.0-33.0) pg MCHC 36.0 H (31.0-35.0) g/dl RDW 12.0 (11.0-16.0) % Plt Count 257 (160-400) X10*3/uL MPV 10.3 (9.4-12.3) fL Immature Gran % (Auto) 0.3 (0.0-0.4) % Neut % (Auto) 70.3 (45-73) % Lymph % (Auto) 19.9 L (20-40) % [place] % (Auto) 6.8 (2-11) % Eos % (Auto) 2.1 (0-4) % Baso % (Auto) 0.6 (0-2) % Lymph # (Auto) 2.0 (1.2-4.9) X10*3/uL [place] # (Auto) 0.7 (0.1-1.2) X10*3/uL Eos # (Auto) 0.2 (0.0-0.4) X10*3/uL Baso # (Auto) 0.1 (0.0-0.2) X10*3/uL Abs Immat Gran (auto) 0.03 (0.00-0.03) X10*3/uL Absolute Neuts (auto) 7.1 (2.0-8.3) x10*3/uL Absolute Nucleated RBC 0.000 (0.0-0.012) X10*3/uL Nucleated RBC % (auto) 0.0 (0.0-0.2) /100WBC D-Dimer High Sensitivty NG/ML Sodium 140 (135-145) mmol/L Potassium 4.0 (3.3-5.1) mmol/L Chloride 104 (96-108) mmol/L Carbon Dioxide 25 (22-29) mmol/L Anion Gap 15 (12-20) BUN 18 H (9-16) mg/dL Creatinine 0.76 (0.5-1.4) mg/dL Estim Creat Clear Calc 130.7 Estimated GFR > 60 Random Glucose 85 (60-115) mg/dL Calcium 9.8 (8.4-10.2) mg/dL Total Bilirubin 0.4 (0.0-1.0) mg/dL AST 12 (5-31) U/L ALT 9 (0-31) U/L Alkaline Phosphatase 55 (39-117) U/L Troponin I High Sens < 3.5 (<3.5-17.0) ng/L Total Protein 7.1 (6.5-8.0) g/dL Albumin 4.6 (3.5-5.0) g/dL TSH 2.18 (0.32-4.0) uIU/mL Beta HCG, Quant < 2 mIU/mL COVID-19 (DELVIN) (Negative) COVID-19 Clin Com Influenza Type A (DEMOND) (Negative) Influenza Type B (DEMOND) (Negative) Influenza A & B Note 06/17/22 06/17/22 06/17/22 Range/Units 08:40 08:40 09:52 WBC (4.8-10.8) X10*3/uL RBC (4.20-5.50) X10*6/uL Hgb (12.0-16.0) g/dl Hct (37.0-47.0) % MCV (80.0-98.0) fL MCH (27.0-33.0) pg MCHC (31.0-35.0) g/dl RDW (11.0-16.0) % Plt Count (160-400) X10*3/uL MPV (9.4-12.3) fL Immature Gran % (Auto) (0.0-0.4) % Neut % (Auto) (45-73) % Lymph % (Auto) (20-40) % [place] % (Auto) (2-11) % Eos % (Auto) (0-4) % Baso % (Auto) (0-2) % Lymph # (Auto) (1.2-4.9) X10*3/uL [place] # (Auto) (0.1-1.2) X10*3/uL Eos # (Auto) (0.0-0.4) X10*3/uL Baso # (Auto) (0.0-0.2) X10*3/uL Abs Immat Gran (auto) (0.00-0.03) X10*3/uL Absolute Neuts (auto) (2.0-8.3) x10*3/uL Absolute Nucleated RBC (0.0-0.012) X10*3/uL Nucleated RBC % (auto) (0.0-0.2) /100WBC D-Dimer High Sensitivty NG/ML Sodium (135-145) mmol/L Potassium (3.3-5.1) mmol/L Chloride (96-108) mmol/L Carbon Dioxide (22-29) mmol/L Anion Gap (12-20) BUN (9-16) mg/dL Creatinine (0.5-1.4) mg/dL Estim Creat Clear Calc Estimated GFR Random Glucose (60-115) mg/dL Calcium (8.4-10.2) mg/dL Total Bilirubin (0.0-1.0) mg/dL AST (5-31) U/L ALT (0-31) U/L Alkaline Phosphatase (39-117) U/L Troponin I High Sens < 3.5 (<3.5-17.0) ng/L Total Protein (6.5-8.0) g/dL Albumin (3.5-5.0) g/dL TSH (0.32-4.0) uIU/mL Beta HCG, Quant mIU/mL COVID-19 (DELVIN) Negative (Negative) COVID-19 Clin Com See Note Influenza Type A (DEMOND) Negative (Negative) Influenza Type B (DEMOND) Negative (Negative) Influenza A & B Note See Note 06/17/22 Range/Units 10:20 WBC (4.8-10.8) X10*3/uL RBC (4.20-5.50) X10*6/uL Hgb (12.0-16.0) g/dl Hct (37.0-47.0) % MCV (80.0-98.0) fL MCH (27.0-33.0) pg MCHC (31.0-35.0) g/dl RDW (11.0-16.0) % Plt Count (160-400) X10*3/uL MPV (9.4-12.3) fL Immature Gran % (Auto) (0.0-0.4) % Neut % (Auto) (45-73) % Lymph % (Auto) (20-40) % [place] % (Auto) (2-11) % Eos % (Auto) (0-4) % Baso % (Auto) (0-2) % Lymph # (Auto) (1.2-4.9) X10*3/uL [place] # (Auto) (0.1-1.2) X10*3/uL Eos # (Auto) (0.0-0.4) X10*3/uL Baso # (Auto) (0.0-0.2) X10*3/uL Abs Immat Gran (auto) (0.00-0.03) X10*3/uL Absolute Neuts (auto) (2.0-8.3) x10*3/uL Absolute Nucleated RBC (0.0-0.012) X10*3/uL Nucleated RBC % (auto) (0.0-0.2) /100WBC D-Dimer High Sensitivty < 150 NG/ML Sodium (135-145) mmol/L Potassium (3.3-5.1) mmol/L Chloride (96-108) mmol/L Carbon Dioxide (22-29) mmol/L Anion Gap (12-20) BUN (9-16) mg/dL Creatinine (0.5-1.4) mg/dL Estim Creat Clear Calc Estimated GFR Random Glucose (60-115) mg/dL Calcium (8.4-10.2) mg/dL Total Bilirubin (0.0-1.0) mg/dL AST (5-31) U/L ALT (0-31) U/L Alkaline Phosphatase (39-117) U/L Troponin I High Sens (<3.5-17.0) ng/L Total Protein (6.5-8.0) g/dL Albumin (3.5-5.0) g/dL TSH (0.32-4.0) uIU/mL Beta HCG, Quant mIU/mL COVID-19 (DELVIN) (Negative) COVID-19 Clin Com Influenza Type A (DEMOND) (Negative) Influenza Type B (DEMOND) (Negative) Influenza A & B Note ECG Data ECG #1: Attestation: I personally reviewed and interpreted this ECG as follows: ECG interpretation date: 06/17/22 ECG interpretation time: 09:36 Prior ECG tracings: not available for review Interpretation: normal sinus rhythm, HR 75 bpm, LVH, QRS 122 ms, normal QTc, no ST segment elevations or depressions Critical Care Time Critical Care Time Critical Care Time: No Discharge Plan Discharge Clinical Impression: Chest pain Patient Disposition: Home, Self-Care Instructions: Chest Pain (DC) Additional Instructions: Your lab workup today was unremarkable. Your CT scan did not show any blood clots or dissection. Recommend following up with your doctor and airport duty manager early next week. If you develop new or worsening symptoms call 911 or come back to the ER for further evaluation. Prescriptions: No Action dicyclomine 20 mg tablet 20 mg PO QID PRN (Reason: abdominal pain) Qty: 20 0RF
[2022-06-17 08:42] LABS: Thyroid Stimulating Hormone 2.18 uIU/mL (0.32-4.0)
[2022-06-17 09:02] LABS: COVID-19 Test Negative (Negative); IDNOW Serial# 16C4AD1C; Influenza A Negative (Negative); Influenza B2 Negative (Negative)
[2022-06-17 09:03] LABS: HCG Quantitative < 2 mIU/mL
[2022-06-17 09:28] VITALS: BP 115/56; PULSE 74; RESP 13; TEMP 36.8; O2SAT 100
[2022-06-17] MEDS: iohexoL 350 MG/ML 100 ML INFUS..BTL IV (09:32)
[2022-06-17 10:21] LABS: Troponin-I High Sensitivity < 3.5 ng/L (<3.5-17.0)
[2022-06-17 10:35] LABS: D Dimer High Sensitivity < 150 NG/ML
[2022-06-17 11:31] VITALS: BP 115/57; PULSE 78; RESP 22; TEMP 36.8; O2SAT 98
--- NOTE | 2022-06-17 11:36 | PC.NURSE ---
pt pwd at time of discharge. pt's mother at bedside. iv removed at time of discharge. discharge packet provided to pt. pt verbalized understanding of discharge plan
== END 2022-06-17 11:38 | disposition home or self-care (01) ==
PROVIDERS: Physician Assistant; Emergency Provider Emergency Medicine
DX: R07.9 Chest pain, unspecified (principal); Z20.822 Contact with and (suspected) exposure to COVID-19
CPT/HCPCS: 36415; 71045; 71275; 80053; 84443; 84484; 84702; 85025; 85379; 87502; 87635; 93005; 99284; Q9967

== ENCOUNTER 2022-09-16 21:32 | Emergency (ER) | payer OTHER, SELFPAY ==
--- NOTE | ~2022-09-16 | XR_ITS ---
EXAMINATION: XR CHEST CLINICAL INFORMATION: Chest pain. COMPARISON: None TECHNIQUE: 2 views of the chest were obtained. FINDINGS: Status post median sternotomy. Heart size is normal. Cardiac mediastinal contours are normal. No pulmonary vascular congestion. Lungs normally aerated. No pleural effusion pneumothorax. No acute osseous abnormality. XR/XR chest 2V IMPRESSION: No acute abnormality of the chest.
[2022-09-16 22:24] VITALS: BP 129/74; PULSE 101; RESP 18; TEMP 36.9; O2SAT 99; BMI 24.8
[2022-09-16 22:41] VITALS: BP 152/70; PULSE 87; RESP 18; TEMP 36.8; O2SAT 98
[2022-09-16 23:02] LABS: Hematocrit 37.9 % (37.0-47.0); Hemoglobin 13.8 g/dl (12.0-16.0); Mean Corpuscular HGB Conc 36.4 g/dl (31.0-35.0); Mean Corpuscular Hemoglobin 29.2 pg (27.0-33.0); Mean Corpuscular Volume 80.1 fL (80.0-98.0); Mean Platelet Volume 10.2 fL (9.4-12.3); Platelet Count 200 X10*3/uL (160-400); Red Blood Count 4.73 X10*6/uL (4.20-5.50); White Blood Count 6.6 X10*3/uL (4.8-10.8)
[2022-09-16 23:25] LABS: Alanine Aminotransferase 25 U/L (0-31); Albumin Level 4.2 g/dL (3.5-5.0); Alkaline Phosphatase 55 U/L (39-117); Anion Gap 11 (12-20); Aspartate Amino Transferase 18 U/L (5-31); Bilirubin Total 0.6 mg/dL (0.0-1.0); Blood Urea Nitrogen 8 mg/dL (9-16); Calcium 8.7 mg/dL (8.4-10.2); Carbon Dioxide 23 mmol/L (22-29); Chloride 106 mmol/L (96-108); Cholesterol 129 mg/dL; Estimated Glomerular Filt Rate > 60; Glucose Random 96 mg/dL (60-115); HDL Cholesterol 54 mg/dL; LDL Cholesterol Calculated 70 mg/dl; Potassium 3.4 mmol/L (3.3-5.1); Sodium 137 mmol/L (135-145); Total Protein 6.4 g/dL (6.5-8.0); Triglycerides 29 mg/dL
[2022-09-16 23:28] VITALS: BP 120/62; PULSE 87; RESP 20; O2SAT 97
--- NOTE | 2022-09-16 23:32 | PC.NURSE ---
PT A&Ox4, reports N/V/D starting yesterday with intermittent abd pain. States has productive cough with brown and yellow sputum. Reports last BM prior to arrival. LS slight wheezy. Blood work drawn and sent to lab. Ambulated to independently.
--- NOTE | 2022-09-16 23:51 | ED.NAVMDI ---
HPI - Nausea/Vomiting/Diarrhea General Chief complaint: Nausea/Vomiting/Diarrhea Stated complaint: n+v shaking Time Seen by Provider: 09/16/22 23:33 Source: patient Mode of arrival: ambulatory Limitations: no limitations History of Present Illness HPI Narrative: 22-year-old female who presents emergency department for evaluation of viral-like illness times 2 days. Patient states that she has had nausea, vomiting, diarrhea, body aches, shakes, lightheadedness, dizziness and weakness. She states that she has been vomiting multiple times a day is not been able to hold down food or fluid. She states she is feeling dizzy and lightheaded as if she was going to pass out. She states she has noted shakiness throughout her entire body. She told me that she felt very cold but did not take her temperature. She has lost her voice. She is complaining of pain in her chest. She points to her anterior chest states the pain is worse with breathing and with coughing. Patient has a cough which is a dry cough and nonproductive. She is also complaining of abdominal pain. She points to her epigastric and right upper quadrant area when asked to localize the pain. She states that the pain is a constant burning sensation. Patient took a home COVID test which was negative. She states she has received 2 Tier 3 COVID-19 vaccinations. Patient has a complicated past medical history she states that she had aortic stenosis and had 2 open or surgeries when she was 5 years old and 13 years old. She states that these surgeries were to correct aortic stenosis and also to correct a problem with ?a muscle around my aorta ?. 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 but she has normal kidney function. She is followed at [facility]. Patient did have a left breast biopsy approximately 1 week prior for a mass, she does not know the results from the biopsy. She states she is having some slight pain in the biopsy area with bruising but no increased warmth or erythema. She states she did have a GI problem last year and she was seen in the emergency department on 06/17/2022 for chest pain and on 04/13/2020 for abdominal pain consistent with GERD. Related Data Previous Rx's Medication Instructions Recorded dicyclomine 20 mg tablet 20 mg PO QID PRN abdominal pain 04/14/22 #20 tabs nirmatrelvir 300 mg (150 mg See Rx Instructions PO .COMPLEX 09/17/22 x2)-ritonavir 100 mg tablet,dose #30 ea pack(EUA) (Paxlovid) ondansetron 4 mg disintegrating 4 mg PO Q6-8H PRN nausea and 09/17/22 tablet vomiting #14 tabs Allergies Allergy/AdvReac Type Severity Reaction Status Date / Time No Known Allergies Allergy Verified 09/16/22 22:24 Review of Systems Review of Systems: Yes all other systems are reviewed and are negative [facility] Past Medical History [facility] Narrative: Past medical/surgical history: Please see the HPI. Social history: She denies tobacco use. She states she occasionally drinks alcohol. She denies drug use. Social History Social History Alcohol intake: current Alcohol intake frequency: holidays/special occasions only Alcohol type: wine Patient Tobacco Use Status: Never used Tobacco Smoked in Last 30 Days: No Use of substances other than those prescribed or required for medical reasons: No Advance Directives: No Patient : No Physical Exam Vital Signs: Vital Signs: Last Vital Signs Temp 98.2 F 09/17/22 02:00 Pulse 100 09/17/22 02:00 Resp 16 09/17/22 02:00 BP 141/72 H 09/17/22 02:00 Pulse Ox 98 09/17/22 02:00 O2 Del Method 09/17/22 02:00 BMI result Body Mass Index 24.8 Const: General: cooperative and no acute distress Orientation/consciousness: oriented to person and oriented to place Limitations: no limitations HEENT: Head: Yes normal to inspection, Yes normocephalic and Yes atraumatic Ears: external ears normal General nose exam: Normal external nose present Face and sinus: Yes normal facial exam Mouth: Normal oral and palatal mucosa present Throat: Yes posterior oropharynx normal Eyes: General: appearance normal, both eyes and all related structures Pupils: Equal, round and reactive pupils present Neck: Neck: Yes normal visual inspection, Yes no lymphadenopathy, Yes trachea midline and Yes supple Chest: Other: Patient's left breast does reveal a biopsy site in the left lower quadrant area, there is some slight ecchymosis and tenderness to the biopsy site, there is no increased warmth or erythema noted to this area Chest palpation & inspection: normal inspection of the chest and tenderness (Patient has tenderness palpation bilateral costochondral joints) Resp: Effort & Inspection: normal respiratory effort and able to speak in complete sentences Auscultation: clear to auscultation bilaterally Cardio: Rate: regular rate Rhythm: regular rhythm Heart sounds: S1 normal heart sound present, S2 normal heart sound present and no murmurs GI: Inspection: Yes normal to inspection Palpation (GI): Soft to palpation, Tenderness to palpation present (GI) in the epigastrum (Moderate) and in the RUQ (Mild) and no guarding Auscultation: normal bowel sounds : General: Yes no CVA tenderness Back/Spine/Pelvis: Back: no CVA tenderness Skin: General skin exam: no rashes or lesions noted Neuro: General: oriented to person and oriented to place Cranial nerves: Yes CN's II-XII intact bilaterally and Yes Equal, round and reactive pupils present Cognition (Neuro): normal cognition Motor exam (neuro): 5/5 motor strength present throughout Extrem: General: Yes normal to inspection Psych: Appearance: grossly normal Speech and movement: Normal speech and movement present Affect: normal affect Attitude: cooperative Thought process: Normal thought process present Thought content: Normal thought content present Medications Administered Discontinued Medications Generic Name Dose Route Start Last Admin Trade Name Freq PRN Reason Stop Dose Admin Sodium Chloride 1,000 mls @ 999 mls/hr 09/16/22 23:50 09/17/22 01:48 Ns IV 09/17/22 00:50 Infused .Q1H1M STA Infusion Morphine Sulfate 4 mg 09/16/22 23:50 09/17/22 00:39 Morphine Sulfate 4 Mg/Ml Cartridge IVPUSH 09/16/22 23:51 4 mg ONCE STA Administration Protocol Ondansetron HCl 4 mg 09/16/22 23:50 09/17/22 00:39 Ondansetron Hcl 4 Mg/2 Ml Vial IVPUSH 09/16/22 23:51 4 mg ONCE ONE Administration Medical Decision Making Medical Decision Making [facility] Narrative: 22-year-old female who presents emergency department for evaluation viral likes symptoms for 2 days with symptoms including nausea, vomiting, diarrhea, chest pain, shortness of breath, nonproductive cough, lightheadedness, dizziness and weakness. Patient did have a left breast biopsy for a mass 1 week prior. Patient's vital signs did reveal an elevated pulse of 101 otherwise were normal. Physical examination did revealed epigastric and right upper quadrant tenderness and costochondral joint tenderness otherwise was unremarkable. Laboratory evaluation was ordered from triage and include a CBC, CMP, lipase UA, urine drug screen, lipid panel, COVID-19, influenza, RSV. I added a quantitative beta-hCG and a chest x-ray. Patient was treated with normal saline 1 L IV. Patient's nausea/vomiting was treated with Zofran 4 mg IV and her pain was treated with morphine 4 mg IV. 0243: My interpretation patient's laboratory/radiology data are as follows: CBC was normal. CMP was normal. Lipase was below detectable limits. COVID-19 was positive. Chest x-ray revealed no acute disease. Patient's O2 saturation was 92-96% on room air. This time I do not think that the patient has COVID-19 pneumonia. She has been vaccinated with 2 vaccines. Patient is not on any significant medications therefore she was prescribed Paxlovid for 5 days. She also be prescribed Zofran 4 mg ODT every 8 hours as needed for nausea and vomiting. She was given printed and verbal instructions discharged home. Differential Diagnosis The differential diagnosis includes but is not limited to viral syndrome, COVID-19, RSV, influenza, pneumonia, GERD, urinary tract infection, , Lab Data [facility] Lab Attestation statement: I reviewed the patient's lab results. Please see [facility] for my discussion of the patient's labs. 09/16/22 22:57 09/16/22 22:57 Labs: Lab Results 09/16/22 09/16/22 09/17/22 Range/Units 22:57 22:57 00:31 WBC 6.6 (4.8-10.8) X10*3/uL RBC 4.73 (4.20-5.50) X10*6/uL Hgb 13.8 (12.0-16.0) g/dl Hct 37.9 (37.0-47.0) % MCV 80.1 (80.0-98.0) fL MCH 29.2 (27.0-33.0) pg MCHC 36.4 H (31.0-35.0) g/dl RDW 12.0 (11.0-16.0) % Plt Count 200 (160-400) X10*3/uL MPV 10.2 (9.4-12.3) fL Absolute Nucleated RBC 0.000 (0.0-0.012) X10*3/uL Nucleated RBC % (auto) 0.0 (0.0-0.2) /100WBC Sodium 137 (135-145) mmol/L Potassium 3.4 (3.3-5.1) mmol/L Chloride 106 (96-108) mmol/L Carbon Dioxide 23 (22-29) mmol/L Anion Gap 11 L (12-20) BUN 8 L (9-16) mg/dL Creatinine 0.70 (0.5-1.4) mg/dL Estim Creat Clear Calc 91.0 Estimated GFR > 60 Random Glucose 96 (60-115) mg/dL Calcium 8.7 D (8.4-10.2) mg/dL Total Bilirubin 0.6 (0.0-1.0) mg/dL AST 18 (5-31) U/L ALT 25 (0-31) U/L Alkaline Phosphatase 55 (39-117) U/L Total Protein 6.4 L (6.5-8.0) g/dL Albumin 4.2 (3.5-5.0) g/dL Triglycerides 29 mg/dL Cholesterol 129 mg/dL LDL Cholesterol, Calc 70 mg/dl HDL Cholesterol 54 mg/dL Lipase 13 (8-78) U/L Beta HCG, Quant < 2 mIU/mL Urine Color Yellow Urine Appearance Clear Urine pH 7.5 (5.0-9.0) Ur Specific [place] 1.020 (1.005-1.025) Urine Protein Negative (Neg-Trace) mg/dL Urine Glucose (UA) Negative (Negative) mg/dL Urine Ketones Trace (Negative) mg/dL Urine Blood Negative (Negative) Urine Nitrite Negative (Negative) Ur Leukocyte Esterase Negative (Negative) Urine RBC 3-5 H (0-2) /HPF Urine WBC 0-5 (0-5) /HPF Ur Squamous Epith Cells 0-2 (0-2) /HPF Urine Bacteria None Seen (None Seen) Hyaline Casts 0-2 (0-2) /LPF Urine Opiates Screen (Not Detect) Urine Fentanyl Screen (Not Detect) Ur Barbiturates Screen (Not Detect) Ur Phencyclidine Scrn (Not Detect) Ur Amphetamines Screen (Not Detect) U Benzodiazepines Scrn (Not Detect) Urine Cocaine Screen (Not Detect) U Marijuana (THC) Screen (Not Detect) Influenza Type A (PCR) (Negative) Influenza Type B (PCR) (Negative) RSV RNA Qual (PCR) (Negative) SARS-CoV-2 RNA (RT-PCR) (Negative) 09/17/22 09/17/22 Range/Units 00:31 00:31 WBC (4.8-10.8) X10*3/uL RBC (4.20-5.50) X10*6/uL Hgb (12.0-16.0) g/dl Hct (37.0-47.0) % MCV (80.0-98.0) fL MCH (27.0-33.0) pg MCHC (31.0-35.0) g/dl RDW (11.0-16.0) % Plt Count (160-400) X10*3/uL MPV (9.4-12.3) fL Absolute Nucleated RBC (0.0-0.012) X10*3/uL Nucleated RBC % (auto) (0.0-0.2) /100WBC Sodium (135-145) mmol/L Potassium (3.3-5.1) mmol/L Chloride (96-108) mmol/L Carbon Dioxide (22-29) mmol/L Anion Gap (12-20) BUN (9-16) mg/dL Creatinine (0.5-1.4) mg/dL Estim Creat Clear Calc Estimated GFR Random Glucose (60-115) mg/dL Calcium (8.4-10.2) mg/dL Total Bilirubin (0.0-1.0) mg/dL AST (5-31) U/L ALT (0-31) U/L Alkaline Phosphatase (39-117) U/L Total Protein (6.5-8.0) g/dL Albumin (3.5-5.0) g/dL Triglycerides mg/dL Cholesterol mg/dL LDL Cholesterol, Calc mg/dl HDL Cholesterol mg/dL Lipase (8-78) U/L Beta HCG, Quant mIU/mL Urine Color Urine Appearance Urine pH (5.0-9.0) Ur Specific [place] (1.005-1.025) Urine Protein (Neg-Trace) mg/dL Urine Glucose (UA) (Negative) mg/dL Urine Ketones (Negative) mg/dL Urine Blood (Negative) Urine Nitrite (Negative) Ur Leukocyte Esterase (Negative) Urine RBC (0-2) /HPF Urine WBC (0-5) /HPF Ur Squamous Epith Cells (0-2) /HPF Urine Bacteria (None Seen) Hyaline Casts (0-2) /LPF Urine Opiates Screen Not Detected (Not Detect) Urine Fentanyl Screen Not Detected (Not Detect) Ur Barbiturates Screen Not Detected (Not Detect) Ur Phencyclidine Scrn Not Detected (Not Detect) Ur Amphetamines Screen Not Detected (Not Detect) U Benzodiazepines Scrn Not Detected (Not Detect) Urine Cocaine Screen Not Detected (Not Detect) U Marijuana (THC) Screen Not Detected (Not Detect) Influenza Type A (PCR) NEGATIVE (Negative) Influenza Type B (PCR) NEGATIVE (Negative) RSV RNA Qual (PCR) NEGATIVE (Negative) SARS-CoV-2 RNA (RT-PCR) POSITIVE A (Negative) Radiology Impression Discussion of test interpretation with radiology: I have reviewed the radiologist's reading. Radiologist Impression: XR/XR chest 2V IMPRESSION: No acute abnormality of the chest. ?Dictated By: Collin Schilling MD Signed By:<Electronically signed by Collin Schilling MD in [place]>09/17/22 0027 Discharge Plan Discharge Clinical Impression: COVID-19, Viral syndrome Patient Disposition: Home, Self-Care Instructions: COVID-19 (Coronavirus Disease 2019) (ED) Additional Instructions: Your laboratory evaluation was unremarkable. Your influenza and your RSV test were negative. Your chest x-ray revealed no evidence for pneumonia. Your O2 saturation was above 88% suggesting that do not need to be admitted for oxygen therapy. I am starting you on Paxlovid. This is a drug that helps you fight off COVID-19 and hopefully will keep you from getting COVID pneumonia or having to be admitted to the hospital. Take Zofran ODT 4 mg pills, 1 pill dissolved in your mouth every 8 hours as needed for nausea and vomiting. Take ibuprofen 200 mg pills, 3 pills every 6 hours as needed for pain. Take Tylenol (acetaminophen) 500 mg pills, 2 pills every 4 to 6 hours as needed for pain. Follow-up with your doctor in 2 days. Please return to the emergency department if your symptoms get worse or if you develop any symptoms that are concerning to you. Prescriptions: New ondansetron 4 mg tablet,disintegrating 4 mg PO Q6-8H PRN (Reason: nausea and vomiting) Qty: 14 0RF Paxlovid (EUA) 300 mg (150 mg x 2)-100 mg tablets,dose pack See Rx Instructions .ROUTE .COMPLEX Qty: 30 0RF Rx Instructions: take TWO 150 mg tablets of nirmatrelvir with ONE 100 mg tablet of ritonavir twice daily for 5 days No Action dicyclomine 20 mg tablet 20 mg PO QID PRN (Reason: abdominal pain) Qty: 20 0RF
[2022-09-17 00:08] LABS: Lipase 13 U/L (8-78)
[2022-09-17 00:36] LABS: HCG Quantitative < 2 mIU/mL
[2022-09-17 00:39] VITALS: RESP 16
[2022-09-17] MEDS: ondansetron HCL 4 MG/2 ML VIAL IVPUSH (00:39)
[2022-09-17] MEDS: Morphine Sulfate 4 MG/ML CARTRIDGE IVPUSH (00:39)
[2022-09-17] MEDS: 0.9 % Sodium Chloride 1,000 ML 999 ML IV (00:40)
[2022-09-17 00:41] LABS: Appearance Urine Clear; Color Urine Yellow; Glucose Urine UA Negative (Negative); Leukocyte Esterase Urine Negative (Negative); Nitrite Urine Negative (Negative); PH 7.5 (5.0-9.0); Urine Blood Negative (Negative); Urine Ketones Trace mg/dL (Negative); Urine Protein Negative (Neg-Trace)
[2022-09-17 00:43] LABS: Bacteria Urine None Seen (None Seen); Hyaline Casts Urine 0-2 /LPF (0-2); Squamous Epithelial Cell Urine 0-2 /HPF (0-2); WBC Urine 0-5 /HPF (0-5)
[2022-09-17 00:50] LABS: Amphetamine Screen Urine Not Detected (Not Detect); Barbiturates, Urine Not Detected (Not Detect); Benzodiazepines Screen Urine Not Detected (Not Detect); Cannabinoid Screen Urine Not Detected (Not Detect); Cocaine Screen Urine Not Detected (Not Detect); Fentanyl, urine Not Detected (Not Detect); Opiate Screen Urine Not Detected (Not Detect); Phencyclidine Screen Urine Not Detected (Not Detect)
--- NOTE | 2022-09-17 01:15 | PC.NURSE ---
Pt aox3. Reporting I taste blood in my mouth. Pt reports vomiting earlier in the day and having a cough. No blood noted in the mouth cavity. Breaths are even and unlabored. No apparent distress noted. Will continue to monitor.
[2022-09-17 01:16] LABS: Influenza A PCR NEGATIVE (Negative); Influenza B PCR NEGATIVE (Negative); Resp Syncy Virus RNA Qual PCR NEGATIVE (Negative); SARS COV2 PCR INHOUSE POSITIVE (Negative)
--- NOTE | 2022-09-17 01:22 | PC.NURSE ---
recvd call from [facility] with result COVID+; CALVIN Bennett notified
[2022-09-17 02:00] VITALS: BP 141/72; PULSE 100; RESP 16; TEMP 36.8; O2SAT 98
--- NOTE | 2022-09-17 02:00 | MHC.EDTECH ---
'0200 rounding done ,vitals sign taken ,patient oxygen is 97 % ,but patient said she feel like she cant breath ,rn chata is aware .
--- NOTE | 2022-09-17 03:25 | PC.NURSE ---
IV line removed. Pt tolerated well. Discharge instructions reviewed with pt. Pt verbalizes understanding.
== END 2022-09-17 03:29 | disposition home or self-care (01) ==
PROVIDERS: Emergency Provider Emergency Medicine Emergency Medical Services
DX: U07.1 COVID-19 (principal); B34.9 Viral infection, unspecified; R10.9 Unspecified abdominal pain; R11.2 Nausea with vomiting, unspecified; R05.9 Cough, unspecified; Z20.828 Contact with and (suspected) exposure to other viral communicable diseases; N63.20 Unspecified lump in the left breast, unspecified quadrant; G89.18 Other acute postprocedural pain; Z98.890 Other specified postprocedural states; Z79.899 Other long term (current) drug therapy
CPT/HCPCS: 0241U; 36415; 71046; 80053; 80061; 80307; 81001; 83690; 84702; 85027; 96361; 96374; 96375; 99284; J2270; J2405

== ENCOUNTER 2023-04-06 21:16 | Emergency (ER) | payer OTHER, SELFPAY ==
--- NOTE | ~2023-04-06 | CT_ITS ---
EXAMINATION: CT ABDOMEN AND PELVIS WITH CONTRAST CLINICAL INFORMATION: Abdominal pain. COMPARISON: None available. TECHNIQUE: Multidetector volumetric images were obtained from the superior aspect of the liver through the pubic symphysis following administration 85 mL of Omnipaque 350 intravenous contrast. Sagittal and coronal reformatted images were obtained on the technologist's workstation. Oral contrast: No This CT examination was performed using dose optimization techniques as appropriate, variously including the following: *Automated exposure control *Adjustment of mA and/or kV according to patient size (this includes techniques or standardized protocols for targeted exams where dose is matched to indication/reason for exam; i.e. extremities or head) *Use of iterative reconstruction technique DLP: 347 mGy-cm FINDINGS: LUNG BASES: The visualized lung bases are unremarkable. LIVER, GALLBLADDER, AND BILIARY TREE: The liver is normal in size, shape, and attenuation. No focal hepatic lesion or biliary ductal dilatation is present. The gallbladder is unremarkable with no evidence of radiopaque gallstones, gallbladder wall thickening, or obvious pericholecystic inflammatory changes. PANCREAS: Unremarkable. SPLEEN: Unremarkable. ADRENAL GLANDS: Unremarkable. KIDNEYS AND URETERS: The kidneys are normal in size, shape, and attenuation. No hydronephrosis, hydroureter, or calculi seen. No perinephric stranding. There is a 1.5 cm cyst upper pole right kidney. BLADDER: Unremarkable. GASTROINTESTINAL TRACT: The small and large bowel are unremarkable. The appendix is not confidently seen as a separate structure. There is no infiltrative change in the right lower quadrant. ABDOMINAL WALL: No significant hernia is appreciated. LYMPH NODES: Normal. VASCULAR: Unremarkable. PELVIC VISCERA: Unremarkable. OSSEOUS STRUCTURES: Unremarkable. CT/CT abdomen pelvis w IV con IMPRESSION: No acute intra-abdominal process. Fleischner guidelines were followed.
[2023-04-06 21:32] VITALS: BP 133/63; PULSE 75; RESP 16; TEMP 36.9; O2SAT 98; BMI 25.2
--- NOTE | 2023-04-06 21:46 | MHC.EDTECH ---
PATIENT BLOOD DRAWN AND SENT TO LAB ,PATIENT SAID SHE IS UNABLE TO GIVE URINE SAMPLE AT THIS TIME .
[2023-04-06 21:47] LABS: Hematocrit 40.3 % (37.0-47.0); Hemoglobin 14.4 g/dl (12.0-16.0); Mean Corpuscular HGB Conc 35.7 g/dl (31.0-35.0); Mean Corpuscular Volume 81.1 fL (80.0-98.0); Mean Platelet Volume 10.5 fL (9.4-12.3); Platelet Count 232 X10*3/uL (160-400); Red Blood Count 4.97 X10*6/uL (4.20-5.50); White Blood Count 7.9 X10*3/uL (4.8-10.8)
[2023-04-06 22:06] LABS: Alanine Aminotransferase 13 U/L (0-31); Albumin Level 4.2 g/dL (3.5-5.0); Alkaline Phosphatase 51 U/L (39-117); Anion Gap 14 (12-20); Aspartate Amino Transferase 15 U/L (5-31); Bilirubin Total 0.9 mg/dL (0.0-1.0); Blood Urea Nitrogen 10 mg/dL (9-16); Calcium 9.1 mg/dL (8.4-10.2); Carbon Dioxide 20 mmol/L (22-29); Chloride 109 mmol/L (96-108); Creatinine Clr Calc Pharmacy 80.8; Estimated Glomerular Filt Rate > 60; Glucose Random 86 mg/dL (60-115); Lipase 10 U/L (8-78); Potassium 3.9 mmol/L (3.3-5.1); Sodium 139 mmol/L (135-145); Total Protein 6.9 g/dL (6.5-8.0)
--- NOTE | 2023-04-06 23:29 | ED_ITS ---
HPI - General Adult General Chief complaint: Abdominal Pain Stated complaint: abd pain Time Seen by Provider: 04/06/23 23:29 Source: patient Mode of arrival: ambulatory Limitations: no limitations History of Present Illness HPI narrative: Patient is a 22 year old assigned female at with no reported medical hist ory presenting to the emergency department today with right upper abdominal pain. Patient states that over the last 4 days she has had right upper quadrant abdominal pain that radiates into her back with nausea and vomiting. Patient denies any dizziness, lightheadedness, fever, chills, blurry vision, double vision, loss of vision, chest pain, difficulty breathing, shortness of breath, back pain, night sweats, pain with urination, increased urinary frequency, increased urinary urgency, blood in her urine or stool, syncope or a near syncopal episode, recent trauma or falls, bowel incontinence, bladder incontinence, bowel retention, bladder retention, or any other complaints at this time. Onset (ago): day(s) (4) Location: abdomen and right Radiation: back Severity: mild Severity scale (1-10): 4 Quality: aching Pain Consistency: constant Relieving factors: none Exacerbating factors: none Associated symptoms: nausea/vomiting Treatments prior to arrival: none Related Data Previous Rx's Medication Instructions Recorded dicyclomine 20 mg tablet 20 mg PO QID PRN abdominal pain 04/14/22 #20 tabs nirmatrelvir 300 mg (150 mg See Rx Instructions PO .COMPLEX 09/17/22 x2)-ritonavir 100 mg tablet,dose #30 ea pack (Paxlovid) ondansetron 4 mg disintegrating 4 mg PO Q6-8H PRN nausea and 09/17/22 tablet vomiting #14 tabs Allergies Allergy/AdvReac Type Severity Reaction Status Date / Time No Known Allergies Allergy Verified 09/16/22 22:24 Review of Systems Constitutional: Constitutional: Reports no additional constitutional complaints, Denies chills, Denies fever(s) and Denies night sweats Eyes: Eyes: Reports no additional eye complaints, Denies blurry vision, Denies change in vision, Denies diplopia, Denies eye discharge, Denies loss of vision and Denies eye pain ENT: Denies dizziness Cardiovascular: Cardiovascular: Reports no additional cardiovascular complaints, Denies chest pain, Denies lightheadedness, Denies Loss of Consciousness and Denies dyspnea Respiratory: Respiratory: Reports no additional respiratory complaints and Denies dyspnea Gastrointestinal: Gastrointestinal: Reports no additional gastrointestinal complaints, Reports abdominal pain, Denies melena, Denies hematochezia, Denies change in bowel habits, Denies change in stool character, Reports nausea and Reports vomiting Genitourinary: Genitourinary: Denies hematuria, Denies urinary frequency, Denies dysuria, Denies urinary incontinence, Denies urinary hesitancy and Denies urinary urgency Musculoskeletal: Musculoskeletal: Reports no additional musculoskeletal complaints, Denies numbness and Denies tingling Neurologic: Denies dizziness, Denies loss of vision, Denies numbness and Denies tingling Psychiatric: Psychiatric: Reports no additional psychiatric complaints Endocrine: Endocrine: Reports no additional endocrine complaints Hematologic/Lymphatic: Hematologic/Lymphatic: Reports no additional hematologic/lymphatic complaints Allergic/Immunologic: Allergic/Immunologic: Reports no additional allergic/immunologic complaints [facility] Past Medical History Attestation statement: The following information was validated with the patient. Source: old records reviewed and nursing notes reviewed Medical History COVID-19 Social History Social History Alcohol intake: current Alcohol intake frequency: holidays/special occasions only Alcohol type: wine Patient Tobacco Use Status: Never used Tobacco Advance Directives: No Advance Directives Information Provided: Yes Physical Exam ED Vital Signs: Vital Signs - 24 hr 04/06/23 21:32 04/06/23 23:36 04/07/23 02:25 Temperature 98.4 F 98.2 F Pulse Rate 75 80 75 Respiratory Rate 16 16 17 Blood Pressure 133/63 113/66 133/79 Pulse Oximetry 98 98 99 Oxygen Delivery Method Room Air Room Air Room Air 04/07/23 03:50 Temperature 97.9 F Pulse Rate 63 Respiratory Rate 16 Blood Pressure 116/64 Pulse Oximetry 98 Oxygen Delivery Method Room Air BMI result Body Mass Index 25.2 Const General: cooperative, no acute distress, alert and awake Nutritional Appearance: well nourished Orientation/consciousness: patient oriented x3 Limitations: no limitations HENMT Head: Yes normal to inspection and Yes atraumatic Ears: hearing grossly normal bilaterally and external ears normal General nose exam: Normal external nose present, no nasal discharge noted and no epistaxis Face and sinus: Yes normal facial exam, No abrasion and No laceration Mouth: Normal oral and palatal mucosa present, no drooling and no muffled voice Eyes General: appearance normal, both eyes and all related structures Periorbital: periorbital findings normal Eyelids: Yes eyelids normal Conjunctivae: conjunctivae normal Pupils: Equal, round and reactive pupils present EOM: EOMs intact bilaterally Neck Neck: Yes normal visual inspection, Yes full ROM and Yes no lymphadenopathy Chest Chest palpation & inspection: normal inspection of the chest Resp Effort & Inspection: normal respiratory effort and able to speak in complete sentences Auscultation: clear to auscultation bilaterally Cardio Rate: regular rate Rhythm: regular rhythm GI Inspection: Yes normal to inspection Palpation (GI): Soft to palpation, not firm, nontender and no guarding Neuro General: patient oriented x3 and moves all extremities Cranial nerves: Yes Equal, round and reactive pupils present Cognition (Neuro): normal cognition Motor exam (neuro): 5/5 motor strength present throughout Sensory Exam: Normal double simultaneous stimulation for sensation Coordination: [id number] test normal Extrem General: Yes normal to inspection, Yes full ROM and Yes capillary refill normal Psych Appearance: grossly normal Mental Status: mental status grossly normal Affect: normal affect Attitude: cooperative Thought process: Normal thought process present Thought content: Normal thought content present Insight: Good insight present (Psych) Medications Administered Discontinued Medications Generic Name Dose Route Start Last Admin Trade Name Freq PRN Reason Stop Dose Admin Sodium Chloride 1,000 mls @ 999 mls/hr 04/06/23 23:45 04/06/23 23:57 Ns IV 04/07/23 00:45 999 mls/hr .Q1H1M FELIBERTO Administration Iohexol 85 ml 04/07/23 02:14 04/07/23 02:15 Iohexol 350 Mg/Ml 100 Ml Infus..Btl IV 04/07/23 02:15 85 ml ONCE ONE Administration Morphine Sulfate 4 mg 04/07/23 01:09 04/07/23 02:25 Morphine Sulfate 4 Mg/Ml Cartridge IVPUSH 04/07/23 01:10 4 mg ONCE ONE Administration Protocol Ondansetron HCl 4 mg 04/06/23 23:32 04/07/23 00:02 Ondansetron Hcl 4 Mg/2 Ml Vial IVPUSH 04/06/23 23:33 4 mg ONCE ONE Administration Pantoprazole Sodium 40 mg 04/07/23 01:09 04/07/23 02:25 Pantoprazole Sodium 40 Mg/10 Ml Vial IVPUSH 04/07/23 01:10 40 mg ONCE ONE Administration Medical Decision Making Medical Decision Making [facility] Narrative: Patient is a 22 year old assigned female at with no reported medical history presenting to the emergency department today with abdominal pain. Patient's physical exam was unremarkable. Patient's blood work was unremarkable. Patient's urine is pending. Patient's abdomen/pelvis CT is pending. I explained my physical exam findings as well as all test results to the patient. I answered all questions asked by the patient. Patient received IV fluids, Zofran, and Morphine. Patient signed out to Dr. Caceres pending CT abd/pelvis read and UA. -I received sign-out from MAINE Richey -urinalysis negative for UTI -CT scan May interpretation, no acute abnormalities. INDINGS: LUNG BASES: The visualized lung bases are unremarkable.? LIVER, GALLBLADDER, AND BILIARY TREE: The liver is normal in size, shape, and attenuation. No focal hepatic lesion or biliary ductal dilatation is present. The gallbladder is unremarkable with no evidence of radiopaque gallstones, gallbladder wall thickening, or obvious pericholecystic inflammatory changes.? PANCREAS: Unremarkable.? SPLEEN: Unremarkable.? ADRENAL GLANDS: Unremarkable.? KIDNEYS AND URETERS: The kidneys are normal in size, shape, and attenuation. No hydronephrosis, hydroureter, or calculi seen. No perinephric stranding. There is a 1.5 cm cyst upper pole right kidney. BLADDER: Unremarkable.? GASTROINTESTINAL TRACT: The small and large bowel are unremarkable. The appendix is not confidently seen as a separate structure. There is no infiltrative change in the right lower quadrant. ABDOMINAL WALL: No significant hernia is appreciated.? LYMPH NODES: Normal. VASCULAR: Unremarkable. PELVIC VISCERA: Unremarkable.? OSSEOUS STRUCTURES: Unremarkable.? CT/CT abdomen pelvis w IV con IMPRESSION: No acute intra-abdominal process. ? Fleischner guidelines were followed. Differential Diagnosis Differential Diagnoses: The differential diagnosis associated with the presentation includes Appendicitis Cholecystitis UTI Diverticulitis Gastroenteritis Nausea Vomiting Admission/Observation Consideration of admission/observation: Escalation of care including adm ission/observation considered Patient's disposition dependant on CT abdomen/pelvis read and UA. Lab Data MDM Lab Attestation statement: I reviewed the patient's lab results. My interpretation of these studies and their corresponding values is that they are grossly normal with the exception of the pending urine test. 04/06/23 21:42 04/06/23 21:42 Labs: Lab Results 04/06/23 04/06/23 04/07/23 Range/Units 21:42 21:42 03:53 WBC 7.9 (4.8-10.8) X10*3/uL RBC 4.97 (4.20-5.50) X10*6/uL Hgb 14.4 (12.0-16.0) g/dl Hct 40.3 (37.0-47.0) % MCV 81.1 (80.0-98.0) fL MCH 29.0 (27.0-33.0) pg MCHC 35.7 H (31.0-35.0) g/dl RDW 12.0 (11.0-16.0) % Plt Count 232 (160-400) X10*3/uL MPV 10.5 (9.4-12.3) fL Absolute Nucleated RBC 0.000 (0.0-0.012) X10*3/uL Nucleated RBC % (auto) 0.0 (0.0-0.2) /100WBC Sodium 139 (135-145) mmol/L Potassium 3.9 (3.3-5.1) mmol/L Chloride 109 H (96-108) mmol/L Carbon Dioxide 20 L (22-29) mmol/L Anion Gap 14 (12-20) BUN 10 (9-16) mg/dL Creatinine 0.83 (0.5-1.4) mg/dL Estim Creat Clear Calc 80.8 Estimated GFR > 60 Random Glucose 86 (60-115) mg/dL Calcium 9.1 (8.4-10.2) mg/dL Total Bilirubin 0.9 (0.0-1.0) mg/dL AST 15 (5-31) U/L ALT 13 (0-31) U/L Alkaline Phosphatase 51 (39-117) U/L Total Protein 6.9 (6.5-8.0) g/dL Albumin 4.2 (3.5-5.0) g/dL Lipase 10 (8-78) U/L Beta HCG, Quant < 2 mIU/mL Urine Color Yellow Urine Appearance Clear Urine pH 6.5 (5.0-9.0) Ur Specific [place] >= 1.030 H (1.005-1.025) Urine Protein Negative (Neg-Trace) mg/dL Urine Glucose (UA) Negative (Negative) mg/dL Urine Ketones 15 (Negative) mg/dL Urine Blood Negative (Negative) Urine Nitrite Negative (Negative) Ur Leukocyte Esterase Negative (Negative) Urine RBC 0-2 (0-2) /HPF Urine WBC 0-5 (0-5) /HPF Ur Squamous Epith Cells 0-2 (0-2) /HPF Urine Bacteria None Seen (None Seen) Hyaline Casts 0-2 (0-2) /LPF Critical Care Time Critical Care Time Critical Care Time: Yes Total Critical Care Time: 40 Attestation: I spent 40 minutes of Critical Care Time with this patient. This does not include time spent on separately reported billable procedures. Discharge Plan Discharge Clinical Impression: Abdominal pain Patient Disposition: Home, Self-Care Instructions: Abdominal Pain (ED) Additional Instructions: Please follow-up with your primary care physician tomorrow. If you have any worsening or new symptoms, please return to the emergency room or call 911 Prescriptions: No Action ondansetron 4 mg tablet,disintegrating 4 mg PO Q6-8H PRN (Reason: nausea and vomiting) Qty: 14 0RF Paxlovid 300 mg (150 mg x 2)-100 mg tablets,dose pack See Rx Instructions .ROUTE .COMPLEX Qty: 30 0RF Rx Instructions: take TWO 150 mg tablets of nirmatrelvir with ONE 100 mg tablet of ritonavir twice daily for 5 days dicyclomine 20 mg tablet 20 mg PO QID PRN (Reason: abdominal pain) Qty: 20 0RF
[2023-04-06 23:36] VITALS: BP 113/66; PULSE 80; RESP 16; TEMP 36.8; O2SAT 98
[2023-04-06] MEDS: 0.9 % Sodium Chloride 1,000 ML 999 ML IV (23:57)
[2023-04-07] MEDS: ondansetron HCL 4 MG/2 ML VIAL IVPUSH (00:02)
[2023-04-07 01:33] LABS: HCG Quantitative < 2 mIU/mL
[2023-04-07] MEDS: iohexoL 350 MG/ML 100 ML INFUS..BTL 85 ML IV (02:15)
[2023-04-07 02:25] VITALS: BP 133/79; PULSE 75; RESP 17; O2SAT 99
[2023-04-07] MEDS: Pantoprazole Sodium 40 MG/10 ML VIAL IVPUSH (02:25)
[2023-04-07] MEDS: Morphine Sulfate 4 MG/ML CARTRIDGE IVPUSH (02:25)
[2023-04-07 03:50] VITALS: BP 116/64; PULSE 63; RESP 16; TEMP 36.6; O2SAT 98
--- NOTE | 2023-04-07 04:00 | MHC.EDTECH ---
0400 rounding done ,vitals sign taken ,pt urine sample collected and sent to lab .
[2023-04-07 04:01] LABS: Appearance Urine Clear; Color Urine Yellow; Glucose Urine UA Negative (Negative); Leukocyte Esterase Urine Negative (Negative); Nitrite Urine Negative (Negative); PH 6.5 (5.0-9.0); Specific Gravity - Urine >= 1.030 (1.005-1.025); Urine Blood Negative (Negative); Urine Ketones 15 mg/dL (Negative); Urine Protein Negative (Neg-Trace)
[2023-04-07 04:07] LABS: Bacteria Urine None Seen (None Seen); Hyaline Casts Urine 0-2 /LPF (0-2); RBC Urine 0-2 /HPF (0-2); Squamous Epithelial Cell Urine 0-2 /HPF (0-2); WBC Urine 0-5 /HPF (0-5)
[2023-04-07 06:00] VITALS: BP 106/50; PULSE 68; RESP 16; TEMP 36.6; O2SAT 98
--- NOTE | 2023-04-07 07:11 | PC.NURSE ---
PT REPORTS CONTINUED PAIN AT DISCHARGE. THIS RN MADE DR CORDOVA AWARE. PER DR CORDOVA. PT TO BE DISCHARGED. PT AMBULATORY AT DISCHARGE.VSS. IV REMOVED AT DISCHARGE PT PROVIDED WITH DISCHARGE PACKET. PT VERBALIZED UNDERSTANDING OF DISCHARGE PLAN
== END 2023-04-07 07:13 | disposition home or self-care (01) ==
PROVIDERS: Physician Assistant Medical; Emergency Provider Emergency Medicine
DX: R10.11 Right upper quadrant pain (principal)
CPT/HCPCS: 36415; 74177; 80053; 81001; 83690; 84702; 85027; 96361; 96374; 96375; 99284; J2270; J2405; Q9967